=== PATIENT | male | born 1975 | race Native Hawaiian/Other Pacific Islander ===

== ENCOUNTER 2016-09-01 08:45 | Outpatient (CLI) | payer OTHER | END 2016-09-01 19:13 | disposition home or self-care (01) | LOC: LABW 08:45 | DX: K64.8 Other hemorrhoids (principal); R19.7 Diarrhea, unspecified; K21.9 Gastro-esophageal reflux disease without esophagitis; I10 Essential (primary) hypertension | CPT/HCPCS: 36415; 82705; 82784; 83516; 87015; 87045; 87324; 87328; 87329; 87449; 87899 ==

== ENCOUNTER 2017-05-11 14:52 | Emergency (ER) | payer OTHER ==
[~2017-05-11] VITALS: Ht 175.3 cm; Wt 81.6 kg
[2017-05-11 14:55] VITALS: TEMP 98.4
[2017-05-11] MEDS ORDERED: [UNRECOGNIZED DRUG - CODE] PO (15:11)
[2017-05-11] MEDS ORDERED: PANTOPRAZOLE 40MG TA PO (15:11)
[2017-05-11 16:34] VITALS: BP 132/98
== END 2017-05-11 16:34 | disposition home or self-care (01) ==
LOC: ED 14:52
DX: S60.221A Contusion of right hand, initial encounter (principal); W23.0XXA Caught, crushed, jammed, or pinched between moving objects, initial encounter
CPT/HCPCS: 99282

== ENCOUNTER 2019-01-13 13:44 | Outpatient (CLI) | payer OTHER ==
[~2019-01-13 13:44] MED LIST: PANTOPRAZOLE 40MG TA PO; [UNRECOGNIZED DRUG - CODE] PO
== END 2019-01-13 19:06 | disposition home or self-care (01) ==
LOC: RESP 13:44
DX: R06.02 Shortness of breath (principal)